=== PATIENT | female | born 1940 | race Caucasian/White ===

== ENCOUNTER 2018-08-15 16:15 | Emergency (ER) | payer MEDICARE ==
--- NOTE | 2018-08-15 16:44 | EDM.PDOC ---
ED HPI GENERAL MEDICAL PROBLEM - General Chief Complaint: Respiratory Problem Stated Complaint: SHORT OF BREATH Time Seen by Provider: 08/15/18 16:32 Source of Information: Reports: Patient, Family, RN Notes Reviewed History Limitations: Reports: No Limitations - History of Present Illness INITIAL COMMENTS - FREE TEXT/NARRATIVE: 77-year-old female presents to the [facility] day complaint of shortness of breath, she states she's had shortness of breath for some time however it is progressively getting worse over the last 2 weeks she states is fine at rest but any amount of exertion will make her extremely short of breath. Upon arrival staff noticed her O2 saturation was 85% on presentation. She denies any fevers no sputum production no chest pain she states she has lost weight but she is having diarrhea - Related Data Allergies Allergy/AdvReac Type Severity Reaction Status Date / Time No Known Allergies Allergy Verified 08/15/18 16:27 Home Meds: Home Meds Acetaminophen [Tylenol] 500 mg PO Q4HR PRN 08/15/18 [History] Aspirin [Halfprin] 81 mg PO DAILY 08/15/18 [History] Calcium Carbonate/Vitamin D3 [Calcium Carbonate/Vitamin D 600 MG-200 Unit] 1 tab PO BID 08/15/18 [History] Cholecalciferol (Vitamin D3) [Vitamin D] 1,000 units PO BID 08/15/18 [History] Cranberry Fruit [Cranberry] 475 mg PO DAILY 08/15/18 [History] Diltiazem [Diltiazem XR] 180 mg PO DAILY 08/15/18 [History] Lisinopril 40 mg PO DAILY 08/15/18 [History] Lovastatin 40 mg PO BID 08/15/18 [History] Meclizine [Antivert] 25 mg PO TID PRN 08/15/18 [History] Omeprazole 20 mg PO DAILY 08/15/18 [History] Spironolactone [Aldactone] 25 mg PO DAILY 08/15/18 [History] hydroCHLOROthiazide [Hydrochlorothiazide] 25 mg PO DAILY 08/15/18 [History] Past Medical History Cardiovascular History: Reports: High Cholesterol, Hypertension Musculoskeletal History: Reports: Back Pain, Chronic Social & Family History - Tobacco Use Smoking Status *Q: Never Smoker ED ROS GENERAL - Review of Systems Review Of Systems: See Below Constitutional: Reports: Weight Loss HEENT: Reports: No Symptoms Respiratory: Reports: Shortness of Breath. Denies: Cough, Sputum Cardiovascular: Reports: Dyspnea on Exertion. Denies: Chest Pain GI/Abdominal: Reports: No Symptoms : Reports: No Symptoms Musculoskeletal: Reports: No Symptoms Skin: Reports: No Symptoms Neurological: Reports: No Symptoms ED EXAM, GENERAL - Physical Exam Exam: See Below Free Text/Narrative:: General: Female, mild respiratory distress settling down, initially hypoxic O2 saturation 85% but did respond to oxygen, alert and oriented x3 HEENT: head is atraumatic normocephalic, eyes pupils equal round reactive to light, sclera clear no conjunctivitis appreciated. Ears tympanic membranes clear and perry landmarks and light reflex are present bilaterally canals are clear. Nose no septal deviation, nares are clear, no blood present. Mouth mucosa is moist and pink no erythema or exudate noted in soft palate, tongue is midline uvula is midline, dentures in place. Neck: Supple no thyromegaly no tracheal deviation. Nodes: Cervical nodes subclavicular nodes nontender no palpable lymphadenopathy noted. Lungs: clear to auscultation bilaterally with symmetrical respirations, no adventitious noise appreciated. CV: Regular rate and rhythm S1 and S2 appreciated no murmurs rubs or gallops noted. Abdomen: Soft, obese, nontender, no palpable masses or organomegaly appreciated , no distention no guarding bowel sounds are present, Neuro: Cranial nerves II through XII grossly intact Skin: Warm and dry, intact Extremities: No lower extremity edema appreciated, Course - Vital Signs Last Recorded V/S: Last Vital Signs Temp 97.2 F 08/15/18 16:44 Pulse 105 H 08/15/18 17:36 Resp 22 H 08/15/18 17:36 BP 130/75 08/15/18 18:10 Pulse Ox 96 08/15/18 17:36 - Orders/Labs/Meds Orders: Active Orders 24 hr Category Date Time Status Cardiac Monitoring [RC] .As Directed Care 08/15/18 16:37 Active EKG Documentation Completion [RC] ASDIRECTED Care 08/15/18 16:38 Active Vital Signs [RC] Q1H Care 08/15/18 17:22 Active Ang Chest [CT] Stat Exams 08/15/18 17:47 Taken Chest 2V [CR] Stat Exams 08/15/18 16:38 Taken CULTURE BLOOD [BC] Urgent Lab 08/15/18 17:30 Received CULTURE BLOOD [BC] Urgent Lab 08/15/18 17:38 Received UA W/MICROSCOPIC [URIN] Stat Lab 08/15/18 18:54 Ordered Heparin Sodium/D5W [Heparin 25,000 Units in D5W 500 ML] Med 08/15/18 18:00 Active 25,000 units in 500 ml IV TITRATE Iopamidol [Isovue-370 (76%)] Med 08/15/18 18:00 Active 100 ml IV . DIRECTED Lactated Ringers [Ringers, Lactated] 1,000 ml Med 08/15/18 17:45 Active IV ASDIRECTED Sodium Chloride 0.9% [Normal Saline] 100 ml Med 08/15/18 18:00 Active IV ASDIRECTED Blood Culture x2 Reflex Set [OM.PC] Urgent Oth 08/15/18 17:22 Ordered EKG 12 Lead [EK] Stat Ther 08/15/18 16:38 Ordered Medication Orders Lactated Ringer's (Ringers, Lactated) 1,000 mls @ 125 mls/hr IV ASDIRECTED CESARIO Last Admin: 08/15/18 17:42 Dose: 125 mls/hr Heparin Sodium/Dextrose (Heparin 25,000 Units In D5w 500 Ml) 25,000 units in 500 mls @ 20.684 mls/hr IV TITRATE CESARIO; Protocol Last Admin: 08/15/18 18:39 Dose: 12 units/kg/hr, 20.684 mls/hr Sodium Chloride (Normal Saline) 100 mls @ 3 mls/sec IV ASDIRECTED CESARIO Last Admin: 08/15/18 18:22 Dose: 3 mls/sec Iopamidol (Isovue-370 (76%)) 100 ml IV . DIRECTED CESARIO Last Admin: 08/15/18 18:22 Dose: 70 ml Labs: Laboratory Tests 08/15/18 08/15/18 08/15/18 Range/Units 16:50 16:50 16:50 WBC 12.8 H (4.5-11.0) K/uL RBC 4.77 (3.30-5.50) M/uL Hgb 14.1 (12.0-15.0) g/dL Hct 41.1 (36.0-48.0) % MCV 86 (80-98) fL MCH 30 (27-31) pg MCHC 34 (32-36) % Plt Count 136 L (150-400) K/uL Neut % (Auto) 66 (36-66) % Lymph % (Auto) 22 L (24-44) % [place] % (Auto) 11 H (2-6) % Eos % (Auto) 0 L (2-4) % Baso % (Auto) 0 (0-1) % Sodium 141 (140-148) mmol/L Potassium 4.4 (3.6-5.2) mmol/L Chloride 105 (100-108) mmol/L Carbon Dioxide 19 L (21-32) mmol/L Anion Gap 21.4 H (5.0-14.0) mmol/L BUN 39 H (7-18) mg/dL Creatinine 1.6 H (0.6-1.0) mg/dL Est Cr Clr Drug Dosing 20.81 mL/min Estimated GFR (MDRD) 31 L (>60) Glucose 150 H (74-106) mg/dL Lactic Acid 3.8 H (0.4-2.0) mmol/L Calcium 9.3 (8.5-10.1) mg/dL Total Bilirubin 0.4 (0.2-1.0) mg/dL AST 41 H (15-37) U/L ALT 30 (12-78) U/L Alkaline Phosphatase 39 L (46-116) U/L Troponin I 1.487 H* (0.000-0.056) ng/mL C-Reactive Protein (0.0-0.3) mg/dL NT-Pro-B Natriuret Pep 5690 H (5-450) pg/mL Total Protein 6.5 (6.4-8.2) g/dL Albumin 3.0 L (3.4-5.0) g/dL Globulin 3.5 (2.3-3.5) g/dL Albumin/Globulin Ratio 0.9 L (1.2-2.2) 08/15/18 Range/Units 17:22 WBC (4.5-11.0) K/uL RBC (3.30-5.50) M/uL Hgb (12.0-15.0) g/dL Hct (36.0-48.0) % MCV (80-98) fL MCH (27-31) pg MCHC (32-36) % Plt Count (150-400) K/uL Neut % (Auto) (36-66) % Lymph % (Auto) (24-44) % [place] % (Auto) (2-6) % Eos % (Auto) (2-4) % Baso % (Auto) (0-1) % Sodium (140-148) mmol/L Potassium (3.6-5.2) mmol/L Chloride (100-108) mmol/L Carbon Dioxide (21-32) mmol/L Anion Gap (5.0-14.0) mmol/L BUN (7-18) mg/dL Creatinine (0.6-1.0) mg/dL Est Cr Clr Drug Dosing mL/min Estimated GFR (MDRD) (>60) Glucose (74-106) mg/dL Lactic Acid (0.4-2.0) mmol/L Calcium (8.5-10.1) mg/dL Total Bilirubin (0.2-1.0) mg/dL AST (15-37) U/L ALT (12-78) U/L Alkaline Phosphatase (46-116) U/L Troponin I (0.000-0.056) ng/mL C-Reactive Protein 0.60 H (0.0-0.3) mg/dL NT-Pro-B Natriuret Pep (5-450) pg/mL Total Protein (6.4-8.2) g/dL Albumin (3.4-5.0) g/dL Globulin (2.3-3.5) g/dL Albumin/Globulin Ratio (1.2-2.2) Meds: Medications Generic Name Dose Route Start Last Admin Trade Name Freq PRN Reason Stop Dose Admin Lactated Ringer's 1,000 mls @ 125 mls/hr 08/15/18 17:45 08/15/18 17:42 Ringers, Lactated IV 125 mls/hr ASDIRECTED CESARIO Administration Heparin Sodium/Dextrose 25,000 units in 500 mls @ 20.684 mls/hr 08/15/18 18: 00 08/15/18 18:39 Heparin 25,000 Units In D5w 500 Ml IV 12 units/kg/hr TITRATE CESARIO 20.684 mls/hr Administration Protocol 12 UNITS/KG/HR Sodium Chloride 100 mls @ 3 mls/sec 08/15/18 18:00 08/15/18 18:22 Normal Saline IV 3 mls/sec ASDIRECTED CESARIO Administration Iopamidol 100 ml 08/15/18 18:00 08/15/18 18:22 Isovue-370 (76%) IV 70 ml . DIRECTED CESARIO Administration Discontinued Medications Generic Name Dose Route Start Last Admin Trade Name Waqarq PRN Reason Stop Dose Admin Aspirin 81 mg 08/15/18 17:48 08/15/18 18:31 Aspirin PO 08/15/18 17:49 81 mg ONETIME ONE Administration Heparin Sodium (Porcine) 4,000 units 08/15/18 17:48 08/15/18 18:32 Heparin Sodium IVPUSH 08/15/18 17:49 4,000 units ONETIME ONE Administration Lactated Ringer's 1,000 mls @ 999 mls/hr 08/15/18 17:30 Ringers, Lactated IV ASDIRECTED CESARIO Piperacillin Sod/Tazobactam 100 mls @ 200 mls/hr 08/15/18 17:22 Sod 4.5 gm/ Sodium Chloride IV 08/15/18 17:51 NOW STA Departure - Departure Time of Disposition: 19:05 Disposition: DC/Tfer to Acute Hospital 02 Condition: Fair Clinical Impression: Pulmonary embolism, bilateral - Discharge Information Referrals: Arnaud Cross MD [Primary Care Provider] - Forms: ED Department Discharge - My Orders Last 24 Hours: My Active Orders 08/15/18 16:37 Cardiac Monitoring [RC] .As Directed 08/15/18 16:38 EKG Documentation Completion [RC] ASDIRECTED Chest 2V [CR] Stat EKG 12 Lead [EK] Stat 08/15/18 17:22 Vital Signs [RC] Q1H Blood Culture x2 Reflex Set [OM.PC] Urgent 08/15/18 17:30 CULTURE BLOOD [BC] Urgent 08/15/18 17:38 CULTURE BLOOD [BC] Urgent 08/15/18 17:45 Lactated Ringers [Ringers, Lactated] 1,000 ml IV ASDIRECTED 08/15/18 17:47 Ang Chest [CT] Stat 08/15/18 18:00 Heparin Sodium/D5W [Heparin 25,000 Units in D5W 500 ML] 25,000 units in 500 ml IV TITRATE Iopamidol [Isovue-370 (76%)] 100 ml IV . DIRECTED Sodium Chloride 0.9% [Normal Saline] 100 ml IV ASDIRECTED 08/15/18 18:54 UA W/MICROSCOPIC [URIN] Stat - Assessment/Plan Last 24 Hours: My Active Orders 08/15/18 16:37 Cardiac Monitoring [RC] .As Directed 08/15/18 16:38 EKG Documentation Completion [RC] ASDIRECTED Chest 2V [CR] Stat EKG 12 Lead [EK] Stat 08/15/18 17:22 Vital Signs [RC] Q1H Blood Culture x2 Reflex Set [OM.PC] Urgent 08/15/18 17:30 CULTURE BLOOD [BC] Urgent 08/15/18 17:38 CULTURE BLOOD [BC] Urgent 08/15/18 17:45 Lactated Ringers [Ringers, Lactated] 1,000 ml IV ASDIRECTED 08/15/18 17:47 Ang Chest [CT] Stat 08/15/18 18:00 Heparin Sodium/D5W [Heparin 25,000 Units in D5W 500 ML] 25,000 units in 500 ml IV TITRATE Iopamidol [Isovue-370 (76%)] 100 ml IV . DIRECTED Sodium Chloride 0.9% [Normal Saline] 100 ml IV ASDIRECTED 08/15/18 18:54 UA W/MICROSCOPIC [URIN] Stat Plan: Assessment Acuity = acute Site and laterality = bilateral pulmonary embolism with outside will Etiology = unclear etiology Manifestations = none Location of injury = Home Lab values = hemoglobin elevated lead 12.8 consistent leukocytosis creatinine elevated 1.6 consistent with chronic renal failure stage GIV lactic acid elevated 3.8 consistent lactic acidosis troponin elevated at 1.587 of secondary to right heart strain BNP elevated at 5690 consistent with fluid overload type pattern, CT scan of the chest PE protocol bilateral pulmonary embolisms with outside Plan Called discussed case with Dr. Freeman at [facility] kindly accepted the patient but asked that a CT scan of the chest be done prior to transport she has received aspirin as well as 4000 unit bolus of heparin and an started on heparin drip she'll be transported via EMS ground This note was dictated using [employer] voice recognition software please call with any questions on syntax or grammar.
[2018-08-15] MEDS ORDERED: Piperacillin/Tazobactam 4.5 GM in Sodium Chloride 0.9% 100 ML IV STA (17:22)
[2018-08-15] MEDS ORDERED: Lactated Ringers 1,000 ML IV SCH ×2 (17:30→17:45)
[2018-08-15] MEDS ORDERED: Heparin Sodium 5,000 Units/ML Vial IVPUSH ONE (17:48)
[2018-08-15] MEDS ORDERED: Aspirin 81 MG Tab.Chew PO ONE (17:48)
[2018-08-15] MEDS ORDERED: Iopamidol 755 Mg/ML 100 ML Bottle IV SCH (18:00)
[2018-08-15] MEDS ORDERED: Heparin Sodium/D5W 25,000 UNITS/500 ML BAG IV SCH (18:00)
[2018-08-15] MEDS ORDERED: Sodium Chloride 0.9% 100 ML IV SCH (18:00)
--- NOTE | 2018-08-16 09:20 | CR ---
CHEST: 2 view CLINICAL HISTORY:SOB COMPARISON:None FINDINGS: The heart is enlarged. Pulmonary vascularity appears normal. No infiltrate effusion or pne umothorax is seen. Impression: Cardiomegaly No acute cardiopulmonary process.
== END 2018-08-15 20:20 ==
LOC: JP.ED 16:15
DX: I26.99 Other pulmonary embolism without acute cor pulmonale (principal); I10 Essential (primary) hypertension; E78.00 Pure hypercholesterolemia, unspecified; Z79.899 Other long term (current) drug therapy; Z79.82 Long term (current) use of aspirin
CPT/HCPCS: 36415; 71046; 71275; 80053; 81001; 83605; 83880; 84484; 85025; 86140; 87040; 93005; 96361; 96365; 96366; 96367; 96376; 99285; A9270; J1644; J7030; J7120; Q9967

== ENCOUNTER 2019-11-25 05:46 | Observation (INO) | payer MEDICARE, OTHER, SELFPAY ==
[2019-11-25] MEDS ORDERED: fentaNYL 100 MCG/2 ML SDV IVPUSH ONE (06:35)
[2019-11-25] MEDS ORDERED: Sodium Chloride 0.9% 1,000 ML IV SCH ×2 (06:45→12:52)
--- NOTE | 2019-11-25 06:59 | EDM.PDOC ---
<Fish Lomas - Last Filed: 11/25/19 06:52> ED HPI GENERAL MEDICAL PROBLEM - General Chief Complaint: Abdominal Pain Stated Complaint: ABD PAIN Time Seen by Provider: 11/25/19 06:35 Source of Information: Reports: Patient, Family History Limitations: Reports: No Limitations - History of Present Illness INITIAL COMMENTS - FREE TEXT/NARRATIVE: 79-year-old female who is been struggling with a persistent cold for the past month and a half, took some Mucinex after midnight and at 4 AM developed some lower abdominal cramps and liquid stool. She has had numerous small episodes of stool since 4 AM with persistent cramping of the lower abdomen. No fevers but she became diaphoretic and lightheaded this morning. She has a history of chronic renal disease. Her only history of surgery is a hysterectomy. She also has been started on Eliquis since being diagnosed with pulmonary emboli. She denies any shortness of breath or chest pain. Denies nausea or vomiting. 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 (see below) Other Treatments CROWN IRONER OPERATOR: unknown Lower Abdomen Pain Score (Numeric/FACES): 8 - Related Data Allergies Allergy/AdvReac Type Severity Reaction Status Date / Time No Known Allergies Allergy Verified 11/25/19 05:58 Home Meds: Home Meds Acetaminophen [Tylenol] 500 mg PO Q4HR PRN 08/15/18 [History] Aspirin [Halfprin] 81 mg PO DAILY 08/15/18 [History] Calcium Carbonate/Vitamin D3 [Calcium Carbonate/Vitamin D 600 MG-200 Unit] 1 tab PO BID 08/15/18 [History] Cholecalciferol (Vitamin D3) [Vitamin D] 1,000 units PO BID 08/15/18 [History] Cranberry Fruit [Cranberry] 475 mg PO DAILY 08/15/18 [History] Diltiazem [Diltiazem XR] 180 mg PO DAILY 08/15/18 [History] Lisinopril 40 mg PO DAILY 08/15/18 [History] Lovastatin 40 mg PO BID 08/15/18 [History] Meclizine [Antivert] 25 mg PO TID PRN 08/15/18 [History] Omeprazole 20 mg PO DAILY 08/15/18 [History] Spironolactone [Aldactone] 25 mg PO DAILY 08/15/18 [History] Apixaban [Eliquis] 5 mg PO BID 11/25/19 [History] Past Medical History HEENT History: Reports: Impaired Vision Cardiovascular History: Reports: High Cholesterol, Hypertension Respiratory History: Reports: SOB Gastrointestinal History: Reports: Chronic Diarrhea Genitourinary History: Reports: None 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: Musculoskeletal History: Reports: Back Pain, Chronic Psychiatric History: Reports: Anxiety - Infectious Disease History Infectious Disease History: Reports: Chicken Pox - Past Surgical History Head Surgeries/Procedures: Reports: None HEENT Surgical History: Reports: Cataract Surgery Respiratory Surgical History: Reports: None GI Surgical History: Reports: Colonoscopy Female Surgical History: Reports: Hysterectomy Dermatological Surgical History: Reports: None Social & Family History - Tobacco Use Smoking Status *Q: Never Smoker Second Hand Smoke Exposure: No - Caffeine Use Caffeine Use: Reports: Coffee - Recreational Drug Use Recreational Drug Use: No ED ROS GENERAL - Review of Systems Review Of Systems: See Below Constitutional: Reports: Chills, Malaise, Diaphoresis, Decreased Appetite. Denies: Fever HEENT: Reports: Other (Some persistent nasal congestion) Respiratory: Reports: Cough (Nonproductive). Denies: Shortness of Breath Cardiovascular: Denies: Chest Pain, Palpitations GI/Abdominal: Reports: Abdominal Pain, Diarrhea. Denies: Nausea, Vomiting : Reports: No Symptoms Skin: Reports: Diaphoresis Neurological: Reports: Dizziness ED EXAM, GI/ABD - Physical Exam Exam: See Below Exam Limited By: No Limitations General Appearance: Alert, Mild Distress (Fairly uncomfortable, complaining of lower abdominal cramping) Eyes: Bilateral: Normal Appearance (No jaundice, good hydration) Head: Atraumatic Respiratory/Chest: No Respiratory Distress, Lungs Clear Cardiovascular: Regular Rate, Rhythm, Extra Beats (Frequent extra beats) GI/Abdominal Exam: Normal Bowel Sounds, Tender (Is tender to palpation across the lower abdomen but no focal guarding or rebound) Extremities: No: Pedal Edema Neurological: Alert, Oriented Psychiatric: Anxious Skin Exam: Warm, Dry Course - Vital Signs Last Recorded V/S: Last Vital Signs Temp 36.2 C 11/25/19 06:10 Pulse 77 11/25/19 06:20 Resp 14 11/25/19 06:20 BP 157/55 H 11/25/19 06:20 Pulse Ox 99 11/25/19 06:20 - Orders/Labs/Meds Orders: Active Orders 24 hr Category Date Time Status CULTURE STOOL + SHIGATOX [RM] Stat Lab 11/25/19 06:58 Received Sodium Chloride 0.9% [Normal Saline] 1,000 ml Med 11/25/19 06:45 Active IV ASDIRECTED Medication Orders Sodium Chloride (Normal Saline) 1,000 mls @ 500 mls/hr IV ASDIRECTED CESARIO Last Admin: 11/25/19 07:37 Dose: 500 mls/hr Labs: Laboratory Tests 11/25/19 11/25/19 Range/Units 07:04 07:04 WBC 14.0 H (4.5-11.0) K/uL RBC 4.29 (3.30-5.50) M/uL Hgb 12.3 (12.0-15.0) g/dL Hct 38.4 (36.0-48.0) % MCV 90 (80-98) fL MCH 29 (27-31) pg MCHC 32 (32-36) % Plt Count 212 (150-400) K/uL Neut % (Auto) 77 H (36-66) % Lymph % (Auto) 11 L (24-44) % [place] % (Auto) 10 H (2-6) % Eos % (Auto) 1 L (2-4) % Baso % (Auto) 0 (0-1) % Sodium 139 L (140-148) mmol/L Potassium 4.6 (3.6-5.2) mmol/L Chloride 107 (100-108) mmol/L Carbon Dioxide 21 (21-32) mmol/L Anion Gap 15.6 H (5.0-14.0) mmol/L BUN 30 H (7-18) mg/dL Creatinine 1.3 H (0.6-1.0) mg/dL Est Cr Clr Drug Dosing 24.79 mL/min Estimated GFR (MDRD) 39 L (>60) Glucose 197 H (74-106) mg/dL Calcium 8.6 (8.5-10.1) mg/dL Total Bilirubin 0.3 (0.2-1.0) mg/dL AST 17 (15-37) U/L ALT 14 (12-78) U/L Alkaline Phosphatase 66 D (46-116) U/L Total Protein 6.9 (6.4-8.2) g/dL Albumin 3.2 L (3.4-5.0) g/dL Globulin 3.7 H (2.3-3.5) g/dL Albumin/Globulin Ratio 0.9 L (1.2-2.2) Meds: Medications Generic Name Dose Route Start Last Admin Trade Name Freq PRN Reason Stop Dose Admin Sodium Chloride 1,000 mls @ 500 mls/hr 11/25/19 06:45 11/25/19 07:37 Normal Saline IV 500 mls/hr ASDIRECTED CESARIO Administration Discontinued Medications Generic Name Dose Route Start Last Admin Trade Name Freq PRN Reason Stop Dose Admin Fentanyl 50 mcg 11/25/19 06:35 11/25/19 07:33 Sublimaze IVPUSH 11/25/19 06:36 50 mcg ONETIME ONE Administration - Re-Assessments/Exams Free Text/Narrative Re-Assessment/Exam: 11/25/19 06:55 Patient had to have a small liquid bowel movement 3 times in the first 20 minutes she was here. The third was a significant amount to obtain a sample. IV was started and she was given 500 cc of normal saline an hour, stool sent for WBC, C. difficile and culture. Labs were obtained for CBC, CMP, and care was turned over to Dr. Da Silva pending labs and response to treatment. Departure - Departure Disposition: Admitted As Inpatient 65 Clinical Impression: Rectal bleeding, Elevated blood sugar Diarrhea Qualifiers: Diarrhea type: unspecified type Qualified Code(s): R19.7 - Diarrhea, unspecified - Discharge Information Referrals: PCP,None [Primary Care Provider] - Forms: ED Department Discharge Sepsis Event Note - Evaluation Sepsis Screening Result: No Definite Risk - Focused Exam Vital Signs: Vital Signs Temp Pulse Resp BP Pulse Ox 11/25/19 06:20 77 14 157/55 H 99 11/25/19 06:10 36.2 C 82 14 181/61 H 99 Date Exam was Performed: 11/25/19 Time Exam was Performed: 06:52 <Otto Da Silva - Last Filed: 11/25/19 08:59> Course - Vital Signs Text/Narrative:: Dr. Crews called @ [facility]. Departure - Departure Time of Disposition: 09:20 Condition: Fair - Discharge Information *PRESCRIPTION DRUG MONITORING PROGRAM REVIEWED*: No *COPY OF PRESCRIPTION DRUG MONITORING REPORT IN PATIENT [place]: No Sepsis Event Note - Focused Exam Date Exam was Performed: 11/25/19 Time Exam was Performed: 08:56
--- NOTE | 2019-11-25 10:27 | CRLCT ---
INDICATION: Rectal bleeding. TECHNIQUE: Noncontrast CT scan of the abdomen and pelvis. FINDINGS: The lung bases show mild dependent atelectasis. Calcified lymph nodes adjacent to the distal esophagus. No focal abnormalities identified in the visualized portions of the liver, spleen, pancreas, adrenal glands, and kidneys. No hydronephrosis. No uroliths. Mild colonic diverticulosis with no evidence of diverticulitis. Mild bowel wall thickening involving the transverse and descending colon. The remainder of the GI tract is incompletely distended but shows no gross abnormalities. The stomach and GE junction are not well assessed. Normal appendix. No retroperitoneal, pelvic sidewall, or mesenteric adenopathy. Degenerative changes of the spine. Osteopenia. IMPRESSION: 1. Mild bowel wall thickening involving the transverse and descending colon representing a nonspecific colitis. Dictated by Asif Pringle MD @ 11/25/2019 10:25:35 AM Dictated by: Asif Pringle MD @ 11/25/2019 10:25:52 (Electronically Signed)
[2019-11-25] MEDS ORDERED: Ondansetron 4 MG/2 ML SDV IVPUSH ONE (10:55)
--- NOTE | 2019-11-25 10:57 | PCM.HP.2 ---
H&P History of Present Illness - General Date of Service: 11/25/19 Admit Problem/Dx: Admission Diagnosis/Problem Admission Diagnosis/Problem Colitis Source of Information: Patient, Provider History Limitations: Reports: No Limitations - History of Present Illness Initial Comments - Free Text/Narative: CC: I don't feel well at all HPI: Umu presented to the emergency room with abdominal pain and diarrhea. She has been struggling with sinus congestion and rhinorrhea for several weeks. Early this morning she developed moderately severe crampy lower abdominal pain. This pain radiated throughout her abdomen and seemed to be worse just prior to having bowel movements. She did not take anything to make the pain better before coming to the emergency room but fentanyl in the emergency room has helped. She describes multiple episodes of watery diarrhea and now has some mild bleeding in the diarrhea. She has some nausea but has not had any vomiting. She does not feel short of breath. She has not had any fevers. She did have an episode on the toilet this morning where she became clammy and nauseated but did not pass out. She is not aware of any sick contacts but has had children and grandchildren as well as great-grandchildren in the house over the last several days. No suspect food ingestions and no recent travel. Work-up in the emergency room revealed mild leukocytosis as well as stable stage III chronic kidney disease. CT scan of the abdomen and pelvis revealed nonspecific colitis involving the transverse and descending colon. Procalcitonin is normal and CRP is essentially normal. Patient had bloody diarrhea in the emergency room. She will be admitted for observation. Lower Abdomen Pain Score (Numeric/FACES): 8 - Related Data Allergies/Adverse Reactions: Allergies Allergy/AdvReac Type Severity Reaction Status Date / Time No Known Allergies Allergy Verified 11/25/19 05:58 Home Medications: Home Meds Acetaminophen [Tylenol] 500 mg PO Q4HR PRN 08/15/18 [History] Aspirin [Halfprin] 81 mg PO DAILY 08/15/18 [History] Calcium Carbonate/Vitamin D3 [Calcium Carbonate/Vitamin D 600 MG-200 Unit] 1 tab PO BID 08/15/18 [History] Cholecalciferol (Vitamin D3) [Vitamin D] 1,000 units PO BID 08/15/18 [History] Cranberry Fruit [Cranberry] 475 mg PO DAILY 09/23/18 [History] Diltiazem [Diltiazem XR] 180 mg PO DAILY 08/15/18 [History] Lisinopril 40 mg PO DAILY 08/15/18 [History] Lovastatin 40 mg PO BID 08/15/18 [History] Meclizine [Antivert] 25 mg PO TID PRN 08/15/18 [History] Omeprazole 20 mg PO DAILY 08/15/18 [History] Spironolactone [Aldactone] 25 mg PO DAILY 08/15/18 [History] Apixaban [Eliquis] 5 mg PO BID 11/25/19 [History] Past Medical History HEENT History: Reports: Impaired Vision Cardiovascular History: Reports: High Cholesterol, Hypertension Respiratory History: Reports: SOB Gastrointestinal History: Reports: Chronic Diarrhea Genitourinary History: Reports: None [employer] History: Reports: Musculoskeletal History: Reports: Back Pain, Chronic Psychiatric History: Reports: Anxiety - Infectious Disease History Infectious Disease History: Reports: Chicken Pox - Past Surgical History Head Surgeries/Procedures: Reports: None HEENT Surgical History: Reports: Cataract Surgery Respiratory Surgical History: Reports: None GI Surgical History: Reports: Colonoscopy Female Surgical History: Reports: Hysterectomy Dermatological Surgical History: Reports: None Social & Family History - Family History Cardiac: Denies: CAD - Tobacco Use Smoking Status *Q: Never Smoker Second Hand Smoke Exposure: No - Caffeine Use Caffeine Use: Reports: Coffee - Recreational Drug Use Recreational Drug Use: No H&P Review of Systems - Review of Systems: Review Of Systems: See Below Free Text/Narrative: A complete 12 point review of systems was obtained. Pertinent positives and negatives are noted in the history of present illness. All other systems were reviewed and were negative except as noted. Exam - Exam Exam: See Below - Vital Signs Vital Signs: Last Vital Signs Temp 36.2 C 11/25/19 06:10 Pulse 77 11/25/19 06:20 Resp 14 11/25/19 06:20 BP 157/55 H 11/25/19 06:20 Pulse Ox 99 11/25/19 06:20 Weight: 85.729 kg - Exam Quality Assessment: No: Supplemental Oxygen General: Alert, Oriented, Cooperative. No: Mild Distress HEENT: Conjunctiva Clear. No: Mucosa Moist & [place] (dry), Scleral Icterus Neck: Supple, Trachea Midline. No: Lymphadenopathy Lungs: Clear to Auscultation, Normal Respiratory Effort Cardiovascular: Regular Rate, Regular Rhythm GI/Abdominal Exam: Normal Bowel Sounds, Soft, No Distention, Tender (Moderate lower abdomen). No: Guarding Extremities: No Pedal Edema. No: Increased Warmth Peripheral Pulses: 2+: Dorsalis Pedis (L), Dorsalis Pedis (R) Skin: Warm, Dry Neuro Extensive - Mental Status: Alert, Oriented x3, Nl Response to Commands Neuro Extensive - Motor, Sensory, Reflexes: No: Dysarthria, Abnormal Motor, Tremor Psychiatric: Alert, Normal Affect - Patient Data Lab Results Last 24 hrs: Laboratory Results - last 24 hr 11/25/19 11/25/19 Range/Units 07:04 07:04 WBC 14.0 H (4.5-11.0) K/uL RBC 4.29 (3.30-5.50) M/uL Hgb 12.3 (12.0-15.0) g/dL Hct 38.4 (36.0-48.0) % MCV 90 (80-98) fL MCH 29 (27-31) pg MCHC 32 (32-36) % Plt Count 212 (150-400) K/uL Neut % (Auto) 77 H (36-66) % Lymph % (Auto) 11 L (24-44) % [place] % (Auto) 10 H (2-6) % Eos % (Auto) 1 L (2-4) % Baso % (Auto) 0 (0-1) % Sodium 139 L (140-148) mmol/L Potassium 4.6 (3.6-5.2) mmol/L Chloride 107 (100-108) mmol/L Carbon Dioxide 21 (21-32) mmol/L Anion Gap 15.6 H (5.0-14.0) mmol/L BUN 30 H (7-18) mg/dL Creatinine 1.3 H (0.6-1.0) mg/dL Est Cr Clr Drug Dosing 24.79 mL/min Estimated GFR (MDRD) 39 L (>60) Glucose 197 H (74-106) mg/dL Calcium 8.6 (8.5-10.1) mg/dL Total Bilirubin 0.3 (0.2-1.0) mg/dL AST 17 (15-37) U/L ALT 14 (12-78) U/L Alkaline Phosphatase 66 D (46-116) U/L Total Protein 6.9 (6.4-8.2) g/dL Albumin 3.2 L (3.4-5.0) g/dL Globulin 3.7 H (2.3-3.5) g/dL Albumin/Globulin Ratio 0.9 L (1.2-2.2) Result Diagrams: 11/25/19 07:04 11/25/19 07:04 Lauro Results Last 24 hrs: Microbiology 11/25/19 06:58 Clostridioides difficile (PCR) - Final Stool / Feces 11/25/19 06:58 Stool for WBCs - Final Stool / Feces NO WBC SEEN REFERENCE RANGE: NO WBC SEEN Imaging Impressions Last 24 hrs: CT scan of the abdomen and pelvis without IV contrast -images were personally reviewed -mild nonspecific colitis involving the transverse and descending colon. No evidence for perforation or free air. No significant stranding around the colon. No diverticulitis obvious. No other acute pathology noted. Sepsis Event Note - Evaluation Sepsis Screening Result: No Definite Risk - Focused Exam Vital Signs: Vital Signs Temp Pulse Resp BP Pulse Ox 11/25/19 06:20 77 14 157/55 H 99 11/25/19 06:10 36.2 C 82 14 181/61 H 99 Date Exam was Performed: 11/25/19 Time Exam was Performed: 15:46 *Q Meaningful Use (ADM) - VTE *Q VTE Pharmacological Contraindications *Q: Active Hemorrhage - VTE Risk Assess *Q Each Risk Factor Represents 1 Point: Obesity ( BMI > 25 kg/m2) Total Score 1 Point Risk Factors: 1 Each Risk Factor Represents 2 Points: None Total Score 2 Point Risk Factors: 0 Each Risk Factor Represents 3 Points: Age 75 Years or Greater, History of DVT/PE Total Score 3 Point Risk Factors: 6 Each Risk Factor Represents 5 Points: None Total Score 5 Point Risk Factors: 0 Venous Thromboembolism Risk Factor Score *Q: 7 - Problem List (1) Colitis SNOMED Code(s): 26333339 ICD Code: K52.9 - NONINFECTIVE GASTROENTERITIS AND COLITIS, UNSPECIFIED Status: Acute Current Visit: Yes (2) Rectal bleeding SNOMED Code(s): 65728314 ICD Code: K62.5 - HEMORRHAGE OF ANUS AND RECTUM Status: Acute Current Visit: Yes (3) History of DVT (deep vein thrombosis) SNOMED Code(s): 312685524 ICD Code: Z86.718 - PERSONAL HISTORY OF OTHER VENOUS THROMBOSIS AND EMBOLISM Status: Chronic Current Visit: Yes (4) Essential hypertension SNOMED Code(s): 85380487 ICD Code: I10 - ESSENTIAL (PRIMARY) HYPERTENSION Status: Chronic Current Visit: No Problem List Initiated/Reviewed/Updated: Yes Orders Last 24hrs: Active Orders 24 hr Category Date Time Status Patient Status Manage Transfer [TRANSFER] Routine ADT 11/25/19 10:50 Ordered CULTURE STOOL + SHIGATOX [RM] Stat Lab 11/25/19 06:58 Received Sodium Chloride 0.9% [Normal Saline] 1,000 ml Med 11/25/19 06:45 Active IV ASDIRECTED Resuscitation Status Routine Resus Stat 11/25/19 10:53 Ordered Medication Orders Sodium Chloride (Normal Saline) 1,000 mls @ 500 mls/hr IV ASDIRECTED [facility] Last Admin: 11/25/19 07:37 Dose: 500 mls/hr Assessment/Plan Comment:: ASSESSMENT AND PLAN - Nonspecific colitis with hematochezia-mild rectal bleeding present. Vital signs stable and no fevers. She does have a mild leukocytosis but procalcitonin is undetectable and CRP is essentially normal. I suspect she has a viral enteritis at this time. Potential sick contacts though none of them were ill at the time of their visit. Vitals are stable and clinically she looks well but with the bleeding she is not safe for outpatient management. -Gentle fluids -Symptom management -Advance diet as tolerated -Hold apixaban Essential hypertension-blood pressure mildly elevated but she has not had her usual medications. These will be resumed when they are available from home. History of DVT-chronically anticoagulated. -Hold apixaban until bleeding stops Maintenance issues - - DVT prophylaxis -SCDs - GI prophylaxis -not indicated - Nutrition -regular - Castro catheter -not indicated CODE STATUS -full code Admission justification -patient will be referred observation status for hydration and close monitoring as well as symptom management Disposition - I would anticipate discharge home after the hospital stay Primary care physician -Dr. Arnaud Crews M.D. - Mortality Measure Prognosis:: Good
[2019-11-25] MEDS ORDERED: Acetaminophen 325 MG Tab PO PRN (12:52)
[2019-11-25] MEDS ORDERED: Ondansetron 4 MG/2 ML SDV IV PRN ×2 (12:52→18:12)
[2019-11-25] MEDS ORDERED: Ondansetron 4 MG Tab.DIS PO PRN ×2 (12:52→18:12)
[2019-11-25] MEDS ORDERED: LORazepam 2 MG/ML SDV IVPUSH PRN (12:52)
[2019-11-25] MEDS ORDERED: Melatonin 3 MG Tab PO PRN (12:52)
[2019-11-25] MEDS ORDERED: oxyCODONE 5 MG Tab PO PRN (12:52)
[2019-11-25] MEDS ORDERED: Lisinopril 20 MG Tab PO SCH (14:00)
[2019-11-25] MEDS: Metoclopramide 10 MG/2 ML SDV IVPUSH PRN ×2 (14:37→21:19)
[2019-11-25] MEDS: Morphine 2 MG/ML Syringe IVPUSH PRN ×2 (15:49→23:34)
[2019-11-25] MEDS ORDERED: Promethazine 25 MG Tab PO PRN (18:12)
[2019-11-25] MEDS: SPIRONOLACTONE 25 MG PO SCH (21:21)
[2019-11-25] MEDS: DILTIAZEM 180 MG PO SCH (21:22)
[2019-11-25] MEDS: LOVASTATIN 40 MG PO SCH (21:22)
[2019-11-25] MEDS: Aspirin 81 MG Tab.EC**POM PO SCH (21:22)
[2019-11-26] MEDS: Morphine 2 MG/ML Syringe IVPUSH PRN (06:05)
[2019-11-26] MEDS: Pantoprazole 40 MG Tab.CR PO SCH (07:32)
[2019-11-26] MEDS: LISINOPRIL 40 MG PO SCH (09:44)
[2019-11-26] MEDS: SPIRONOLACTONE 25 MG PO SCH (09:44)
[2019-11-26] MEDS: DILTIAZEM 180 MG PO SCH (09:44)
[2019-11-26] MEDS: LOVASTATIN 40 MG PO SCH ×2 (09:45→20:37)
--- NOTE | 2019-11-26 10:59 | PCM.PN ---
- General Info Date of Service: 11/26/19 Subjective Update: No acute events overnight. Still having some nausea and abdominal cramping though these are little better today. Still passing small quantities of blood in her stool. Did not tolerate breakfast very well. She has not had any vomiting. No fevers. CRP and procalcitonin were very low. Functional Status: Reports: Pain Controlled - Review of Systems General: Denies: Fever Gastrointestinal: Reports: Abdominal Pain, Nausea - Patient Data Vitals - Most Recent: Last Vital Signs Temp 37.3 C 11/26/19 07:33 Pulse 105 H 11/26/19 07:33 Resp 18 11/26/19 07:33 BP 166/80 H 11/26/19 07:39 Pulse Ox 93 L 11/26/19 07:33 Weight - Most Recent: 85.729 kg I&O - Last 24 Hours: Intake & Output 11/25/19 11/26/19 11/26/19 22:59 06:59 14:59 Intake Total 215 540 Balance 215 540 Lab Results Last 24 Hours: Laboratory Results - last 24 hr 11/25/19 11/25/19 11/26/19 Range/Units 12:52 12:52 04:15 WBC 13.2 H (4.5-11.0) K/uL RBC 4.42 (3.30-5.50) M/uL Hgb 12.4 (12.0-15.0) g/dL Hct 39.1 (36.0-48.0) % MCV 89 (80-98) fL MCH 28 (27-31) pg MCHC 32 (32-36) % Plt Count 210 (150-400) K/uL Sodium (140-148) mmol/L Potassium (3.6-5.2) mmol/L Chloride (100-108) mmol/L Carbon Dioxide (21-32) mmol/L Anion Gap (5.0-14.0) mmol/L BUN (7-18) mg/dL Creatinine (0.6-1.0) mg/dL Est Cr Clr Drug Dosing mL/min Estimated GFR (MDRD) (>60) Glucose (74-106) mg/dL Calcium (8.5-10.1) mg/dL C-Reactive Protein 0.34 H (0.0-0.3) mg/dL Procalcitonin < 0.05 ng/mL 11/26/19 Range/Units 04:15 WBC (4.5-11.0) K/uL RBC (3.30-5.50) M/uL Hgb (12.0-15.0) g/dL Hct (36.0-48.0) % MCV (80-98) fL MCH (27-31) pg MCHC (32-36) % Plt Count (150-400) K/uL Sodium 139 L (140-148) mmol/L Potassium 4.8 (3.6-5.2) mmol/L Chloride 107 (100-108) mmol/L Carbon Dioxide 20 L (21-32) mmol/L Anion Gap 16.8 H (5.0-14.0) mmol/L BUN 19 H (7-18) mg/dL Creatinine 1.2 H (0.6-1.0) mg/dL Est Cr Clr Drug Dosing 26.86 mL/min Estimated GFR (MDRD) 43 L (>60) Glucose 138 H (74-106) mg/dL Calcium 8.6 (8.5-10.1) mg/dL C-Reactive Protein (0.0-0.3) mg/dL Procalcitonin ng/mL Lauro Results Last 24 Hours: Microbiology 11/25/19 06:58 Stool Culture - Preliminary Stool / Feces NORMAL ENTERIC MERCEDEZ 1 DAY Shiga Toxin I - Final NEGATIVE FOR SHIGA TOXIN 1 Shiga Toxin II - Final NEGATIVE FOR SHIGA TOXIN 2 REFERENCE RANGE: NEGATIVE 11/25/19 06:58 Clostridioides difficile (PCR) - Final Stool / Feces 11/25/19 06:58 Stool for WBCs - Final Stool / Feces NO WBC SEEN REFERENCE RANGE: NO WBC SEEN Med Orders - Current: Current Medications Acetaminophen (Tylenol) 650 mg PO Q4H PRN PRN Reason: Pain (Mild 1-3)/fever Aspirin (Halfprin) 81 mg PO BEDTIME [facility] Last Admin: 11/25/19 21:22 Dose: 81 mg Diltiazem HCl (Cardizem Cd) 180 mg PO DAILY [facility] Last Admin: 11/26/19 09:44 Dose: 180 mg Sodium Chloride (Normal Saline) 1,000 mls @ 125 mls/hr IV ASDIRECTED [facility] Stop: 11/26/19 19:01 Influenza Virus Vaccine (Fluzone High-Dose Syringe) 180 mcg IM ONETIME ONE Stop: 11/28/19 10:01 Lorazepam (Ativan) 0.5 mg IVPUSH Q4H PRN PRN Reason: Nausea/Vomiting Last Admin: 11/25/19 13:20 Dose: 0.5 mg Melatonin (Melatonin) 9 mg PO BEDTIME PRN PRN Reason: Sleep Metoclopramide HCl (Reglan) 5 mg IVPUSH Q6H PRN PRN Reason: Nausea Last Admin: 11/25/19 21:19 Dose: 5 mg Morphine Sulfate (Morphine) 2 mg IVPUSH Q2H PRN PRN Reason: Pain (severe 7-10) Last Admin: 11/26/19 06:05 Dose: 2 mg Ondansetron HCl (Zofran) 4 mg IV Q4H PRN PRN Reason: Nausea/Vomiting Last Admin: 11/25/19 19:13 Dose: 4 mg Ondansetron HCl (Zofran Odt) 4 mg PO Q4H PRN PRN Reason: Nausea able to take PO Oxycodone HCl (Oxycodone) 5 mg PO Q4H PRN PRN Reason: Pain (moderate 4-6) Pantoprazole Sodium (Protonix) 40 mg PO ACBREAKFAST [facility] Last Admin: 11/26/19 07:32 Dose: 40 mg Lovastatin 40 Mg Tab (Pom) 0 each PO BID [facility] Last Admin: 11/26/19 09:45 Dose: 1 each Lisinopril 40 Mg Tab (Pom) 0 each PO DAILY [facility] Last Admin: 11/26/19 09:44 Dose: 1 each Promethazine HCl (Phenergan) 25 mg PO Q4H PRN PRN Reason: Nausea/Vomiting Spironolactone (Aldactone) 25 mg PO DAILY [facility] Last Admin: 11/26/19 09:44 Dose: 25 mg Discontinued Medications Fentanyl (Sublimaze) 50 mcg IVPUSH ONETIME ONE Stop: 11/25/19 06:36 Last Admin: 11/25/19 07:33 Dose: 50 mcg Sodium Chloride (Normal Saline) 1,000 mls @ 500 mls/hr IV ASDIRECTED [facility] Last Admin: 11/25/19 07:37 Dose: 500 mls/hr Sodium Chloride (Normal Saline) 1,000 mls @ 100 mls/hr IV ASDIRECTED [facility] Stop: 11/25/19 22:53 Last Admin: 11/25/19 14:32 Dose: 100 mls/hr Lisinopril (Prinivil) 40 mg PO DAILY [facility] Last Admin: 11/25/19 17:44 Dose: Not Given Ondansetron HCl (Zofran) 4 mg IVPUSH ONETIME ONE Stop: 11/25/19 10:56 Last Admin: 11/25/19 11:10 Dose: 4 mg Ondansetron HCl (Zofran Odt) 4 mg PO Q6H PRN PRN Reason: Nausea able to take PO Ondansetron HCl (Zofran) 4 mg IV Q6H PRN PRN Reason: Nausea/Vomiting Last Admin: 11/25/19 14:03 Dose: 4 mg - Exam Quality Assessment: No: Supplemental Oxygen General: Alert, Oriented, Cooperative, No Acute Distress Lungs: Normal Respiratory Effort GI/Abdominal Exam: Soft, No Distention Extremities: No Pedal Edema Psy/Mental Status: Alert, Normal Affect Sepsis Event Note - Evaluation Sepsis Screening Result: Sepsis Risk - Focused Exam Vital Signs: Vital Signs Temp Pulse Resp BP BP Pulse Ox 11/26/19 07:39 166/80 H 11/26/19 07:33 37.3 C 105 H 18 180/77 H 93 L 11/26/19 03:49 36.7 C 108 H 16 148/66 H 92 L 11/25/19 23:31 37.5 C 110 H 16 160/69 H 92 L Date Exam was Performed: 11/26/19 Time Exam was Performed: 14:10 - Problem List & Annotations (1) Colitis SNOMED Code(s): 85639990 Code(s): K52.9 - NONINFECTIVE GASTROENTERITIS AND COLITIS, UNSPECIFIED Status: Acute Current Visit: Yes (2) Rectal bleeding SNOMED Code(s): 82460885 Code(s): K62.5 - HEMORRHAGE OF ANUS AND RECTUM Status: Acute Current Visit: Yes (3) History of DVT (deep vein thrombosis) SNOMED Code(s): 539773994 Code(s): Z86.718 - PERSONAL HISTORY OF OTHER VENOUS THROMBOSIS AND EMBOLISM Status: Chronic Current Visit: Yes (4) Essential hypertension SNOMED Code(s): 32460135 Code(s): I10 - ESSENTIAL (PRIMARY) HYPERTENSION Status: Chronic Current Visit: No - Problem List Review Problem List Initiated/Reviewed/Updated: Yes - My Orders Last 24 Hours: My Active Orders 11/25/19 10:53 Resuscitation Status Routine 11/25/19 12:52 Patient Status [ADT] Routine Antiembolic Devices [RC] .Routine Intake and Output [RC] QSHIFT Notify Provider Vital Signs [RC] ASDIRECTED Oxygen Therapy [RC] PRN Up With Assistance [RC] ASDIRECTED VTE/DVT Education [RC] Per Unit Routine Vital Signs [RC] Q4H Acetaminophen [Tylenol] 650 mg PO Q4H PRN LORazepam [Ativan] 0.5 mg IVPUSH Q4H PRN Melatonin 9 mg PO BEDTIME PRN Morphine 2 mg IVPUSH Q2H PRN oxyCODONE 5 mg PO Q4H PRN Sequential Compression Device [OM.PC] Routine VTE Pharmacological Contraindications [AST] Routine 11/25/19 14:00 Diltiazem [Cardizem CD] 180 mg PO DAILY Spironolactone [Aldactone] 25 mg PO DAILY 11/25/19 14:11 Influenza Vaccine Charge [RC] .DISCHARGE 11/25/19 14:22 Metoclopramide [Reglan] 5 mg IVPUSH Q6H PRN 11/25/19 18:12 Ondansetron [Zofran ODT] 4 mg PO Q4H PRN Ondansetron [Zofran] 4 mg IV Q4H PRN Promethazine [Phenergan] 25 mg PO Q4H PRN 11/25/19 21:00 Aspirin [Halfprin] 81 mg PO BEDTIME Patient's Own Medication [Ptom] 0 each PO BID 11/25/19 Lunch Regular Diet [DIET] 11/26/19 07:30 Pantoprazole [ProTONIX] 40 mg PO ACBREAKFAST 11/26/19 09:00 Patient's Own Medication [Ptom] 0 each PO DAILY 11/26/19 11:00 Sodium Chloride 0.9% [Normal Saline] 1,000 ml IV ASDIRECTED 11/27/19 05:00 BASIC METABOLIC PANEL,BMP [CHEM] Timed CBC W/O DIFF,HEMOGRAM [HEME] Timed (1) 11/28/19 10:00 FLU Vacc [id number](65YR UP)/PF [Fluzone High-Dose Syringe] 180 mcg IM ONETIME ONE - Plan Plan:: ASSESSMENT AND PLAN - Nonspecific colitis with hematochezia-mild rectal bleeding present. Vital signs stable and no fevers. Little better today. Still suspect viral infection. Not tolerating diet very well. -Gentle fluids -Symptom management -Advance diet as tolerated -Hold apixaban Essential hypertension-blood pressure mildly elevated but she missed doses of her medications yesterday. History of DVT-chronically anticoagulated. -Hold apixaban until bleeding stops Maintenance issues - - DVT prophylaxis -SCDs - GI prophylaxis -not indicated - Nutrition -regular Admission justification -patient will be referred observation status for hydration and close monitoring as well as symptom management Disposition - I would anticipate discharge home after the hospital stay Primary care physician -Dr. Arnaud Crews M.D.
[2019-11-26] MEDS ORDERED: Sodium Chloride 0.9% 1,000 ML IV SCH (11:00)
[2019-11-26] MEDS: Aspirin 81 MG Tab.EC**POM PO SCH (20:37)
[2019-11-27] MEDS: Pantoprazole 40 MG Tab.CR PO SCH (07:41)
[2019-11-27] MEDS: LISINOPRIL 40 MG PO SCH (09:00)
[2019-11-27] MEDS: SPIRONOLACTONE 25 MG PO SCH (09:01)
[2019-11-27] MEDS: LOVASTATIN 40 MG PO SCH (09:01)
[2019-11-27] MEDS: DILTIAZEM 180 MG PO SCH (09:01)
--- NOTE | 2019-11-27 10:23 | PCM.DCSUM1 ---
Discharge Summary - Hospital Course Brief History: 79-year-old female with history of essential hypertension who presented with abdominal pain, nausea and diarrhea. She was admitted for management of presumed viral gastroenteritis with hematochezia. Diagnosis: Stroke: No - Discharge Data Discharge Date: 11/27/19 Discharge Disposition: Home, Self-Care 01 Condition: Good - Referral to Home Health Primary Care Physician: PCP None - Discharge Diagnosis/Problem(s) (1) Colitis SNOMED Code(s): 19663842 ICD Code: K52.9 - NONINFECTIVE GASTROENTERITIS AND COLITIS, UNSPECIFIED Status: Acute (2) Rectal bleeding SNOMED Code(s): 41305845 ICD Code: K62.5 - HEMORRHAGE OF ANUS AND RECTUM Status: Acute (3) History of DVT (deep vein thrombosis) SNOMED Code(s): 281806843 ICD Code: Z86.718 - PERSONAL HISTORY OF OTHER VENOUS THROMBOSIS AND EMBOLISM Status: Chronic (4) Essential hypertension SNOMED Code(s): 46960188 ICD Code: I10 - ESSENTIAL (PRIMARY) HYPERTENSION Status: Chronic - Patient Summary/Data Hospital Course: Umu presented to the emergency room with crampy abdominal pain and nausea. She did develop hematochezia while in the emergency room. She was admitted for management of nonspecific colitis with hematochezia. We did perform a CRP and procalcitonin both of which were normal. A viral gastroenteritis type picture with colonic inflammation was suspected. CT scan did show some mild thickening of the transverse and proximal descending colon. Over the course of the hospital stay we saw slow but steady improvement in her symptoms. Her nausea improved and then resolved prior to hospital discharge. Her diarrhea has improved dramatically. She has just a couple of drops of blood left in her stool but her hematochezia has essentially resolved. She has not had any fevers. Her white blood cell count has been trending down each day. She was able to advance her diet without any nausea or vomiting on the day of discharge. Strength has been good. She did have some mild hypertension early in the hospital stay but blood pressures have been good for the past 24 hours. I believe she is safe for discharge home at this time. She is well hydrated and able to maintain adequate oral intake. She will follow-up if symptoms get worse or do not continue to get better. - Patient Instructions Diet: Regular Diet as Tolerated Activity: As Tolerated Showering/Bathing: May Shower Notify Provider of: Fever, Increased Pain, Nausea and/or Vomiting Other/Special Instructions: 1. You were in the hospital for management of viral gastroenteritis with manifestations including nausea, diarrhea and abdominal pain. Your condition has been improving with supportive care including IV fluids and symptom management. I would recommend that you continue to consume soft, bland and boring foods for the next several days as the inflammation resolves further. Please be sure to drink plenty of water to stay hydrated. 2. Continue your usual home medications as previously prescribed. 3. Follow- up if your symptoms do not continue to get better or if you have worsening abdominal pain, persistent vomiting or fever. - Discharge Plan *PRESCRIPTION DRUG MONITORING PROGRAM REVIEWED*: No *COPY OF PRESCRIPTION DRUG MONITORING REPORT IN PATIENT [place]: No Home Medications: Home Meds Acetaminophen [Tylenol] 500 mg PO Q4HR PRN 08/15/18 [History] Aspirin [Halfprin] 81 mg PO DAILY 08/15/18 [History] Calcium Carbonate/Vitamin D3 [Calcium Carbonate/Vitamin D 600 MG-200 Unit] 1 tab PO BID 08/15/18 [History] Cholecalciferol (Vitamin D3) [Vitamin D] 1,000 units PO BID 08/15/18 [History] Cranberry Fruit [Cranberry] 475 mg PO DAILY 08/15/18 [History] Diltiazem [Dilacor XR] 180 mg PO DAILY 08/15/18 [History] Lisinopril 40 mg PO DAILY 08/15/18 [History] Lovastatin 40 mg PO BID 08/15/18 [History] Meclizine [Antivert] 25 mg PO TID PRN 08/15/18 [History] Omeprazole 20 mg PO DAILY 08/15/18 [History] Spironolactone [Aldactone] 25 mg PO DAILY 08/15/18 [History] Apixaban [Eliquis] 5 mg PO BID 11/25/19 [History] Oxygen Therapy Mode: Room Air Patient Handouts: Viral Gastroenteritis, Adult Referrals: Arnaud Cross MD [Physician] - (Follow-up if symptoms do not continue to get better or if they get worse) - Discharge Summary/Plan Comment DC Time >30 min.: No - Patient Data Vitals - Most Recent: Last Vital Signs Temp 37.0 C 11/27/19 07:42 Pulse 87 11/27/19 07:42 Resp 16 11/27/19 07:42 BP 125/54 L 11/27/19 07:42 Pulse Ox 95 11/27/19 07:42 Weight - Most Recent: 85.729 kg I&O - Last 24 hours: Intake & Output 11/26/19 11/27/19 11/27/19 22:59 06:59 14:59 Intake Total 1407 300 Output Total 250 300 Balance 1157 0 Lab Results - Last 24 hrs: Laboratory Results - last 24 hr 11/27/19 11/27/19 Range/Units 05:57 05:57 WBC 12.7 H (4.5-11.0) K/uL RBC 3.90 (3.30-5.50) M/uL Hgb 11.0 L (12.0-15.0) g/dL Hct 35.0 L (36.0-48.0) % MCV 90 (80-98) fL MCH 28 (27-31) pg MCHC 31 L (32-36) % Plt Count 199 (150-400) K/uL Sodium 138 L (140-148) mmol/L Potassium 4.6 (3.6-5.2) mmol/L Chloride 108 (100-108) mmol/L Carbon Dioxide 23 (21-32) mmol/L Anion Gap 11.6 (5.0-14.0) mmol/L BUN 21 H (7-18) mg/dL Creatinine 1.3 H (0.6-1.0) mg/dL Est Cr Clr Drug Dosing 24.79 mL/min Estimated GFR (MDRD) 39 L (>60) Glucose 100 (74-106) mg/dL Calcium 8.3 L (8.5-10.1) mg/dL SHOAIB Results - Last 24 hrs: Microbiology 11/25/19 06:58 Stool Culture - Preliminary Stool / Feces NORMAL ENTERIC MERCEDEZ 2 DAYS Shiga Toxin I - Final NEGATIVE FOR SHIGA TOXIN 1 Shiga Toxin II - Final NEGATIVE FOR SHIGA TOXIN 2 REFERENCE RANGE: NEGATIVE Med Orders - Current: Current Medications Acetaminophen (Tylenol) 650 mg PO Q4H PRN PRN Reason: Pain (Mild 1-3)/fever Aspirin (Halfprin) 81 mg PO BEDTIME [facility] Last Admin: 11/26/19 20:37 Dose: 81 mg Diltiazem HCl (Cardizem Cd) 180 mg PO DAILY [facility] Last Admin: 11/27/19 09:01 Dose: 180 mg Influenza Virus Vaccine (Fluzone High-Dose Syringe) 180 mcg IM ONETIME ONE Stop: 11/28/19 10:01 Lorazepam (Ativan) 0.5 mg IVPUSH Q4H PRN PRN Reason: Nausea/Vomiting Last Admin: 11/25/19 13:20 Dose: 0.5 mg Melatonin (Melatonin) 9 mg PO BEDTIME PRN PRN Reason: Sleep Metoclopramide HCl (Reglan) 5 mg IVPUSH Q6H PRN PRN Reason: Nausea Last Admin: 11/25/19 21:19 Dose: 5 mg Morphine Sulfate (Morphine) 2 mg IVPUSH Q2H PRN PRN Reason: Pain (severe 7-10) Last Admin: 11/26/19 06:05 Dose: 2 mg Ondansetron HCl (Zofran) 4 mg IV Q4H PRN PRN Reason: Nausea/Vomiting Last Admin: 11/25/19 19:13 Dose: 4 mg Ondansetron HCl (Zofran Odt) 4 mg PO Q4H PRN PRN Reason: Nausea able to take PO Oxycodone HCl (Oxycodone) 5 mg PO Q4H PRN PRN Reason: Pain (moderate 4-6) Pantoprazole Sodium (Protonix) 40 mg PO ACBREAKFAST [facility] Last Admin: 11/27/19 07:41 Dose: 40 mg Lovastatin 40 Mg Tab (Pom) 0 each PO BID [facility] Last Admin: 11/27/19 09:01 Dose: 1 each Lisinopril 40 Mg Tab (Pom) 0 each PO DAILY [facility] Last Admin: 11/27/19 09:00 Dose: 1 each Promethazine HCl (Phenergan) 25 mg PO Q4H PRN PRN Reason: Nausea/Vomiting Spironolactone (Aldactone) 25 mg PO DAILY [facility] Last Admin: 11/27/19 09:01 Dose: 25 mg Discontinued Medications Fentanyl (Sublimaze) 50 mcg IVPUSH ONETIME ONE Stop: 11/25/19 06:36 Last Admin: 11/25/19 07:33 Dose: 50 mcg Sodium Chloride (Normal Saline) 1,000 mls @ 500 mls/hr IV ASDIRECTED [facility] Last Admin: 11/25/19 07:37 Dose: 500 mls/hr Sodium Chloride (Normal Saline) 1,000 mls @ 100 mls/hr IV ASDIRECTED [facility] Stop: 11/25/19 22:53 Last Admin: 11/25/19 14:32 Dose: 100 mls/hr Sodium Chloride (Normal Saline) 1,000 mls @ 125 mls/hr IV ASDIRECTED [facility] Stop: 11/26/19 19:01 Last Admin: 11/26/19 14:42 Dose: 125 mls/hr Lisinopril (Prinivil) 40 mg PO DAILY [facility] Last Admin: 11/25/19 17:44 Dose: Not Given Ondansetron HCl (Zofran) 4 mg IVPUSH ONETIME ONE Stop: 11/25/19 10:56 Last Admin: 11/25/19 11:10 Dose: 4 mg Ondansetron HCl (Zofran Odt) 4 mg PO Q6H PRN PRN Reason: Nausea able to take PO Ondansetron HCl (Zofran) 4 mg IV Q6H PRN PRN Reason: Nausea/Vomiting Last Admin: 11/25/19 14:03 Dose: 4 mg *Q Meaningful Use (DIS) - VTE *Q VTE Pharmacological Contraindications *Q: Active Hemorrhage
== END 2019-11-27 12:15 | disposition home or self-care (01) ==
LOC: JP.ED 05:46 → JP.MS 10:50
PROVIDERS: ADMIT Internal Medicine; ATTEND Internal Medicine
DX: K52.9 Noninfective gastroenteritis and colitis, unspecified (principal); K62.5 Hemorrhage of anus and rectum; D72.829 Elevated white blood cell count, unspecified; I12.9 Hypertensive chronic kidney disease with stage 1 through stage 4 chronic kidney disease, or unspecified chronic kidney disease; N18.3 Chronic kidney disease, stage 3 (moderate); E78.00 Pure hypercholesterolemia, unspecified; Z79.01 Long term (current) use of anticoagulants; Z79.82 Long term (current) use of aspirin; Z86.718 Personal history of other venous thrombosis and embolism; Z79.899 Other long term (current) drug therapy
CPT/HCPCS: 36415; 74176; 80048; 80053; 84145; 85025; 85027; 86140; 87046; 87493; 87899; 89055; 90662; 96361; 96374; 96375; 96376; 99284; 99285; A9270; G0008; G0378; J2060; J2270; J2405; J2765; J3010; J7030

== ENCOUNTER 2023-06-07 11:47 | Emergency (ER) | payer MEDICARE ==
[2023-06-07 12:57] LABS: APPEARANCE,URINE CLOUDY (CLEAR); BILIRUBIN,URINE NEGATIVE (NEGATIVE); COLOR,URINE YELLOW (YELLOW); GLUCOSE,URINE NEGATIVE (NEGATIVE); KETONES,URINE NEGATIVE (NEGATIVE); LEUKOCYTE ESTERASE,URINE LARGE (NEGATIVE); NITRITE,URINE NEGATIVE (NEGATIVE); OCCULT BLOOD,URINE MODERATE (NEGATIVE); PROTEIN,URINE 100 mg/dL (NEGATIVE); UROBILINOGEN,URINE 0.2 EU/dL (0.2-1.0)
[2023-06-07 12:58] LABS: AMORPHOUS SEDIMENT,URINE NOT SEEN; BACTERIA,URINE MODERATE; EPITHELIAL CELLS,URINE FEW; MUCUS,URINE NOT SEEN; WBC,URINE 40-50 (0-5)
[2023-06-07 14:09] LABS: BASOPHILS ABSOLUTE AUTO 0.04 K/uL (0.00-0.10); BASOPHILS PERCENT AUTO 0.3 % (0.1-1.3); EOSINOPHILS PERCENT AUTO 0.9 % (0.0-5.4); HEMATOCRIT 37.8 % (34.3-46.0); HEMOGLOBIN 12.4 g/dL (11.2-15.5); IMMATURE GRAN ABSOLUTE AUTO 0.05 K/uL (0.00-0.23); IMMATURE GRAN PERCENT AUTO 0.4 % (0.0-0.7); LYMPHOCYTES ABSOLUTE AUTO 1.98 K/uL (0.8-3.3); LYMPHOCYTES PERCENT AUTO 16.9 % (11.4-47.7); MEAN CORPUSCULAR HEMOGLOBIN 29.2 pg (31.6-35.5); MEAN CORPUSCULAR HGB CONC 32.8 g/dL (31.6-35.5); MEAN CORPUSCULAR VOLUME 88.9 fL (81.4-99.0); MONOCYTES PERCENT AUTO 9.4 % (3.3-12.6); NEUTROPHILS ABSOLUTE AUTO 8.45 K/uL (1.0-7.6); NEUTROPHILS PERCENT AUTO 72.1 % (40.0-78.1); PLATELET COUNT,PLT 221 K/uL (130-375); RED BLOOD CELL COUNT 4.25 M/uL (3.77-5.24); WHITE BLOOD CELL COUNT,WBC 11.7 K/uL (3.2-11.0)
[2023-06-07 14:25] LABS: CALCIUM 9.2 mg/dL (8.5-10.1); CREATININE 1.3 mg/dL (0.6-1.0); EST CRCL DRUG DOSING (CG) 23.55 mL/min; POTASSIUM,K 4.4 mmol/L (3.6-5.2)
[2023-06-07 14:26] LABS: ANION GAP 13.4 mmol/L (5.0-14.0)
== END 2023-06-07 14:59 | disposition home or self-care (01) ==
LOC: JP.ED 11:47
DX: N39.0 Urinary tract infection, site not specified (principal); E78.00 Pure hypercholesterolemia, unspecified; I12.9 Hypertensive chronic kidney disease with stage 1 through stage 4 chronic kidney disease, or unspecified chronic kidney disease; N18.9 Chronic kidney disease, unspecified; Z86.718 Personal history of other venous thrombosis and embolism; Z79.82 Long term (current) use of aspirin; Z79.899 Other long term (current) drug therapy
CPT/HCPCS: 36415; 80048; 81001; 85025; 87077; 87086; 99283

== ENCOUNTER 2023-06-09 12:26 | Emergency (ER) | payer MEDICARE ==
[2023-06-09 14:09] LABS: BASOPHILS ABSOLUTE AUTO 0.06 K/uL (0.00-0.10); BASOPHILS PERCENT AUTO 0.8 % (0.1-1.3); EOSINOPHILS ABSOLUTE AUTO 0.09 K/uL (0.00-0.40); EOSINOPHILS PERCENT AUTO 1.2 % (0.0-5.4); HEMATOCRIT 38.5 % (34.3-46.0); HEMOGLOBIN 12.7 g/dL (11.2-15.5); IMMATURE GRAN PERCENT AUTO 0.3 % (0.0-0.7); LYMPHOCYTES ABSOLUTE AUTO 1.76 K/uL (0.8-3.3); LYMPHOCYTES PERCENT AUTO 23.2 % (11.4-47.7); MEAN CORPUSCULAR HEMOGLOBIN 29.3 pg (31.6-35.5); MEAN CORPUSCULAR VOLUME 88.9 fL (81.4-99.0); MONOCYTES ABSOLUTE AUTO 0.62 K/uL (0.20-0.90); MONOCYTES PERCENT AUTO 8.2 % (3.3-12.6); NEUTROPHILS ABSOLUTE AUTO 5.02 K/uL (1.0-7.6); NEUTROPHILS PERCENT AUTO 66.3 % (40.0-78.1); PLATELET COUNT,PLT 239 K/uL (130-375); RED BLOOD CELL COUNT 4.33 M/uL (3.77-5.24); WHITE BLOOD CELL COUNT,WBC 7.6 K/uL (3.2-11.0)
[2023-06-09 14:13] LABS: IMMATURE GRAN ABSOLUTE AUTO 0.02 K/uL (0.00-0.23)
[2023-06-09 14:25] LABS: ANION GAP 14.5 mmol/L (5.0-14.0); BLOOD UREA NITROGEN,BUN 27 mg/dL (7-18); CALCIUM 9.4 mg/dL (8.5-10.1); CARBON DIOXIDE,CO2 23 mmol/L (21-32); CHLORIDE,CL 106 mmol/L (100-108); CREATININE 1.2 mg/dL (0.6-1.0); ESTIMATED GFR 45 mL/min (>60); GLUCOSE RANDOM 93 mg/dL (74-106); POTASSIUM,K 4.5 mmol/L (3.6-5.2); SODIUM,NA 139 mmol/L (140-148)
== END 2023-06-09 18:00 | disposition home or self-care (01) ==
LOC: JP.ED 12:26
DX: K52.9 Noninfective gastroenteritis and colitis, unspecified (principal); E78.00 Pure hypercholesterolemia, unspecified; I10 Essential (primary) hypertension; Z79.899 Other long term (current) drug therapy; Z79.82 Long term (current) use of aspirin; Z90.710 Acquired absence of both cervix and uterus
CPT/HCPCS: 36415; 80048; 85025; 99284